=== PATIENT | female | born 1990 | race Caucasian/White ===

== ENCOUNTER 2021-01-17 00:11 | Emergency (ER) | payer MEDICAID ==
[~2021-01-17] VITALS: Ht 160 cm; Wt 117.9 kg
--- NOTE | 2021-01-17 00:15 | NUR ---
Patient to ER bed 4 to gown for evaluation. Side rails up.
--- NOTE | 2021-01-17 00:16 | NUR ---
Came in ER per aline brought by BLS ambulance from [facility] this 30 year old female, AAOX2, breathing spontaneously at room air, not in distress noted. With chief complaints of rectal bleeding. She swallowed 5 coins and bracelet yesterday, went to [facility] and cleared. Today she had a rectal bleeding. History of hypertension, Asthma, Sleep Apnea, Hypothyroidism. No surgical, no known allergy. Vital signs stable.
[2021-01-17 00:18] VITALS: BP_SYST 142
[2021-01-17] MEDS ORDERED: ONDANSETRON HCL 4 MG/2 ML VIAL IVP ONE (00:30)
[2021-01-17] MEDS ORDERED: PANTOPRAZOLE SODIUM 40 MG/VIAL (PROTONIX) IVP ONE (00:30)
[2021-01-17] MEDS ORDERED: MORPHINE 4 MG INJ. 4 MG/ML VIAL IVP ONE (00:30)
[2021-01-17] MEDS ORDERED: NACL 0.9% 1,000 ML IV SCH (00:30)
--- NOTE | 2021-01-17 00:30 | NUR ---
# 20 gauge angiocath placed to LAC. Use of asceptic technique. Opsite placed over site. Blood return noted. Blood for lab drawn from site. Flushed with 10 cc of normal saline. No evidence of infiltration noted. Patient tolerated well.
[2021-01-17 00:57] LABS: BASOPHILS % (AUTO) 0.3 % (0.0-2.0); EOSINOPHILS # (AUTO) 0.2 K/uL (0.0-0.4); EOSINOPHILS % (AUTO) 1.8 % (0.0-4.0); HEMATOCRIT 38.6 % (36-48); HEMOGLOBIN 13.1 g/dL (12.0-16.0); LYMPHOCYTES # (AUTO) 2.4 K/uL (1.0-5.5); LYMPHOCYTES % (AUTO) 22.2 % (20.5-51.5); MEAN CORPUSCULAR HEMOGLOBIN 31 pg (27-31); MEAN CORPUSCULAR HGB CONC 34 % (32-36); MEAN CORPUSCULAR VOLUME 92 fL (79.0-98.0); MONOCYTES # (AUTO) 0.5 K/uL (0.0-1.0); NEUTROPHILS # (AUTO) 7.7 K/uL (1.8-7.7); NEUTROPHILS % (AUTO) 70.7 % (40.0-70.0); PLATELET COUNT (AUTO) 214 K/uL (130-430); RED BLOOD CELL COUNT(AUTO) 4.21 MIL/uL (4.2-6.2); RED CELL DISTRIBUTION WIDTH 14.7 % (9.0-15.0); WHITE BLOOD COUNT (AUTO) 10.9 K/uL (4.8-10.8)
--- NOTE | 2021-01-17 01:01 | NUR ---
To Xray department per wheelchair in stable condition accompanied by radiology technologist
[2021-01-17 01:04] LABS: CALCIUM 8.8 mg/dL (8.4-11.0); CREATININE 0.88 mg/dL (0.55-1.30); POTASSIUM 3.8 mmol/L (3.5-5.1)
[2021-01-17 01:10] LABS: ALBUMIN 3.7 g/dL (3.4-4.8); TOTAL BILIRUBIN 0.3 mg/dL (0.0-1.0)
[2021-01-17 01:12] LABS: INR 1.1 (0.8-1.2); PROTHROMBIN TIME 10.9 SECS (9.5-12.5)
--- NOTE | 2021-01-17 01:15 | NUR ---
Back to bed, kept comfortable
--- NOTE | 2021-01-17 02:05 | NUR ---
Dr. Goldstein at bedside
--- NOTE | 2021-01-17 03:09 | NUR ---
Re-assesed by Dr. Goldstein, orthostatic BP done.
--- NOTE | 2021-01-17 03:20 | NUR ---
Dr. Goldstein called [facility] and spoke with the nurse, discussed plan of care for the patient and stable to discharge.
[2021-01-17 03:52] VITALS: BP_SYST 143
--- NOTE | 2021-01-17 03:52 | NUR ---
Patient given written and verbal discharge instructions and verbalizes understanding. ER MD discussed with patient the results and treatment provided. Patient in stable condition. ID arm band removed. IV catheter removed intact and dressing applied, no active bleeding. No Rx of given. Patient educated on pain management and to follow up with PMD. Pain Scale 0/10. Opportunity for questions provided and answered.
[2021-01-17] MEDS ORDERED: MYCOLOG15O TP (04:01)
== END 2021-01-17 03:52 | disposition home or self-care (01) ==
LOC: SED 00:11
DX: T18.2XXA Foreign body in stomach, initial encounter (principal); K92.2 Gastrointestinal hemorrhage, unspecified; E11.9 Type 2 diabetes mellitus without complications; I10 Essential (primary) hypertension; X58.XXXA Exposure to other specified factors, initial encounter; Y93.89 Activity, other specified; Y92.89 Other specified places as the place of occurrence of the external cause; Y99.8 Other external cause status
CPT/HCPCS: 36415; 71045; 74021; 80053; 85025; 85610; 85730; 96361; 96374; 96375; 99284; C9113; J2270; J2405; J7030